=== PATIENT | male | born 1950 | race African-American/Black ===

== ENCOUNTER 2018-12-22 22:15 | Inpatient (IN) | payer MEDICARE, MEDICAID ==
[~2018-12-22] VITALS: Ht 177.8 cm; Wt 69.0 kg
[2018-12-22 23:17] LABS: EOSINOPHILS % 7.1 % (0.0-5.0); HEMATOCRIT. 40.3 % (42.0-52.0); HEMOGLOBIN. 13.8 g/dL (14.0-18.0); LYMPHOCYTES % 27.9 % (20.0-50.0); MEAN CORPUSCULAR HEMOGLOBIN 31.5 pg (28.0-32.0); MEAN CORPUSCULAR VOLUME 91.8 fL (80.0-94.0); MEAN PLATELET VOLUME 7.9 fl (7.4-10.4); MONOCYTES % 10.1 % (2.0-8.0); NEUTROPHILS % 53.9 % (40.0-76.0); PLATELET 177 x1000/uL (130-400); RED BLOOD CELL COUNT 4.39 mill/uL (4.7-6.1); RED CELL DISTRIBUTION WIDTH 14.1 % (11.6-14.6)
[2018-12-22 23:20] LABS: CHLORIDE 112 mEq/L (98-107)
[2018-12-22 23:28] LABS: INR 1.1; PARTIAL THROMBOPLASTIN TIME 36.8 sec (23.4-31.0)
[2018-12-23] MEDS ORDERED: ASPIRIN 325MG EC TABLET PO ONE (01:45)
[2018-12-23 05:00] VITALS: BP 143/72
[2018-12-23 08:00] VITALS: BP_SYST 138; BP_SYST 142; BP_DIAS 78; BP_DIAS 87
[2018-12-23] MEDS ORDERED: TEMA15CA5 MT (08:25)
[2018-12-23] MEDS ORDERED: LIP40 MT (08:25)
[2018-12-23] MEDS ORDERED: TRAM50TA94 MT (08:25)
[2018-12-23] MEDS ORDERED: APIX5TAB MT (08:25)
[2018-12-23] MEDS ORDERED: HYDR-4001 MT (08:25)
[2018-12-23] MEDS ORDERED: SERT25TA MT (08:25)
[2018-12-23] MEDS ORDERED: BACL-141 MT (08:25)
[2018-12-23] MEDS ORDERED: AMLO5TAB4 MT (08:25)
[2018-12-23] MEDS ORDERED: LOPHC2 MT (08:25)
[2018-12-23] MEDS ORDERED: FAMO40TA70 MT (08:25)
[2018-12-23] MEDS ORDERED: LORA1TAB MT (08:25)
[2018-12-23] MEDS ORDERED: CLONIDINE 0.1MG TABLET PO PRN (08:30)
[2018-12-23] MEDS ORDERED: ACETAMINOPHEN 325MG TABLET PO PRN (08:30)
[2018-12-23] MEDS ORDERED: DOCUSATE SODIUM 100MG CAPSULE PO PRN (08:30)
[2018-12-23] MEDS ORDERED: ONDANSETRON HCL 4MG/2ML INJ IV PRN (08:30)
[2018-12-23] MEDS ORDERED: ENOXAPARIN 40MG/0.4ML SYR SUBCUT SCH (09:00)
[2018-12-23] MEDS ORDERED: FAMOTIDINE 20MG TABLET PO SCH (09:45)
[2018-12-23] MEDS ORDERED: AMLODIPINE 5MG TABLET PO SCH (10:00)
[2018-12-23] MEDS ORDERED: APIXABAN 5 MG TABLET PO SCH (10:00)
[2018-12-23] MEDS: SERTRALINE HCL 25MG TABLET PO SCH (10:10)
[2018-12-23] MEDS: METOPROLOL TARTRATE 50MG TABLET PO SCH ×2 (10:10→21:06)
[2018-12-23 12:00] VITALS: BP 138/78
[2018-12-23] MEDS ORDERED: IOHEXOL-350 100 ML BOTTLE ONE (12:46)
[2018-12-23] MEDS: AMLODIPINE 5MG TABLET PO SCH ×2 (13:54→21:05)
[2018-12-23] MEDS: BACLOFEN 10MG TABLET PO SCH ×2 (15:32→21:05)
[2018-12-23] MEDS: SODIUM CHLORIDE 0.45% 1,000 ML IV SCH ×2 (15:32→21:07)
[2018-12-23 16:00] VITALS: BP 114/66
[2018-12-23 16:01] LABS: ETHANOL BLOOD < 10 mg/dL
[2018-12-23 16:06] LABS: CREATINE KINASE 72 IU/L (39-308); T4 FREE 0.92 ng/dL (0.76-1.46)
[2018-12-23 16:12] LABS: FOLIC ACID (FOLATE) SERUM 11.6 ng/mL (>5.38)
[2018-12-23 20:00] VITALS: BP 131/74
[2018-12-23] MEDS ORDERED: TEMAZEPAM 15MG CAPSULE PO PRN (21:00)
[2018-12-24] VITALS: BP 117/62
[2018-12-24 04:00] VITALS: BP 124/78
[2018-12-24] MEDS: SODIUM CHLORIDE 0.45% 1,000 ML IV SCH (06:08)
[2018-12-24] MEDS: BACLOFEN 10MG TABLET PO SCH ×3 (06:48→21:27)
[2018-12-24 07:18] LABS: BASOPHILS % 0.5 % (0.0-2.0); EOSINOPHILS % 8.1 % (0.0-5.0); HEMATOCRIT. 36.1 % (42.0-52.0); HEMOGLOBIN. 12.9 g/dL (14.0-18.0); MEAN CORPUSCULAR HEMOGLOBIN 32.3 pg (28.0-32.0); MEAN CORPUSCULAR VOLUME 90.6 fL (80.0-94.0); MEAN PLATELET VOLUME 8.5 fl (7.4-10.4); NEUTROPHILS % 51.4 % (40.0-76.0); PLATELET 182 x1000/uL (130-400); RED BLOOD CELL COUNT 3.99 mill/uL (4.7-6.1); RED CELL DISTRIBUTION WIDTH 14.2 % (11.6-14.6)
[2018-12-24 07:22] LABS: CHLORIDE 112 mEq/L (98-107)
[2018-12-24 07:34] LABS: LDL CHOLESTEROL 71 mg/dL (5-100)
[2018-12-24 07:35] LABS: HDL CHOLESTEROL 52 mg/dL (40-59)
[2018-12-24 08:00] VITALS: BP 94/79
[2018-12-24] MEDS: AMLODIPINE 5MG TABLET PO SCH ×2 (09:00→21:27)
[2018-12-24] MEDS: METOPROLOL TARTRATE 50MG TABLET PO SCH ×2 (09:00→21:27)
[2018-12-24] MEDS: SERTRALINE HCL 25MG TABLET PO SCH (09:58)
[2018-12-24 12:00] VITALS: BP 117/69
[2018-12-24 16:00] VITALS: BP 130/79
[2018-12-24 20:00] VITALS: BP_SYST 123; BP_SYST 142; BP_DIAS 75; BP_DIAS 79
[2018-12-24 21:13] LABS: CLARITY URINE CLEAR (CLEAR); COLOR URINE YELLOW (YELLOW); KETONES URINE TRACE (NEGATIVE); LEUKOCYTE ESTERASE URINE 2+ (NEGATIVE); NITRITE URINE POSITIVE (NEGATIVE); OCCULT BLOOD URINE 2+ (NEGATIVE); PROTEIN URINE NEGATIVE (NEGATIVE); SPECIFIC GRAVITY URINE 1.024 (1.005-1.030); UROBILINOGEN URINE 0.2 E.U./dL (0.2-1.0)
[2018-12-24 21:26] LABS: *COCAINE SCREEN URINE NEGATIVE (NEGATIVE)
[2018-12-24 21:28] LABS: *AMPHETAMINES SCREEN URINE NEGATIVE (NEGATIVE); *BARBITURATES SCREEN URINE NEGATIVE (NEGATIVE); *BENZODIAZEPINES SCREEN URINE NEGATIVE (NEGATIVE); CANNABINOID URINE SCREEN NEGATIVE (NEGATIVE); METHADONE URINE SCREEN NEGATIVE (NEGATIVE); OPIATES URINE SCREEN NEGATIVE (NEGATIVE); PHENCYCLIDINE URINE SCREEN NEGATIVE (NEGATIVE)
[2018-12-25] VITALS: BP 121/82
[2018-12-25] MEDS: SODIUM CHLORIDE 0.45% 1,000 ML IV SCH ×2 (00:39→17:11)
[2018-12-25 04:00] VITALS: BP 147/82
[2018-12-25] MEDS: BACLOFEN 10MG TABLET PO SCH ×3 (06:03→20:59)
[2018-12-25 06:38] LABS: BASOPHILS % 0.6 % (0.0-2.0); EOSINOPHILS % 8.1 % (0.0-5.0); HEMATOCRIT. 37.4 % (42.0-52.0); HEMOGLOBIN. 12.8 g/dL (14.0-18.0); LYMPHOCYTES % 24.1 % (20.0-50.0); MEAN CORPUSCULAR HEMOGLOBIN 30.9 pg (28.0-32.0); MEAN CORPUSCULAR VOLUME 90.8 fL (80.0-94.0); MEAN PLATELET VOLUME 8.4 fl (7.4-10.4); MONOCYTES % 7.5 % (2.0-8.0); NEUTROPHILS % 59.7 % (40.0-76.0); PLATELET 178 x1000/uL (130-400); RED BLOOD CELL COUNT 4.12 mill/uL (4.7-6.1); RED CELL DISTRIBUTION WIDTH 13.5 % (11.6-14.6)
[2018-12-25 07:24] LABS: CHLORIDE 111 mEq/L (98-107)
[2018-12-25 08:01] VITALS: BP 117/83
[2018-12-25] MEDS ORDERED: LEVOFLOXACIN 250MG PREMIX 50 ML IV SCH (09:15)
[2018-12-25] MEDS: SERTRALINE HCL 25MG TABLET PO SCH (09:49)
[2018-12-25] MEDS: METOPROLOL TARTRATE 50MG TABLET PO SCH ×2 (09:49→20:59)
[2018-12-25] MEDS: AMLODIPINE 5MG TABLET PO SCH ×2 (09:50→20:59)
[2018-12-25] MEDS: LEVOFLOXACIN 500MG PREMIX 100 ML IV SCH (11:42)
[2018-12-25] MEDS: CYANOCOBALAMIN 1000MCG TABLET PO SCH (11:42)
[2018-12-25 12:01] VITALS: BP 123/82
[2018-12-25 16:00] VITALS: BP 155/70
[2018-12-25 20:00] VITALS: BP 130/77
[2018-12-26 04:47] VITALS: BP 126/84
[2018-12-26 06:33] LABS: HEMATOCRIT. 38.1 % (42.0-52.0); HEMOGLOBIN. 13.1 g/dL (14.0-18.0); MEAN CORPUSCULAR HEMOGLOBIN 31.2 pg (28.0-32.0); MEAN CORPUSCULAR VOLUME 90.6 fL (80.0-94.0); MEAN PLATELET VOLUME 8.6 fl (7.4-10.4); PLATELET 174 x1000/uL (130-400); RED CELL DISTRIBUTION WIDTH 13.5 % (11.6-14.6)
[2018-12-26 06:56] LABS: CHLORIDE 110 mEq/L (98-107)
[2018-12-26 08:00] VITALS: BP 122/70
[2018-12-26] MEDS: METOPROLOL TARTRATE 50MG TABLET PO SCH (09:14)
[2018-12-26] MEDS: CYANOCOBALAMIN 1000MCG TABLET PO SCH (09:15)
[2018-12-26] MEDS: AMLODIPINE 5MG TABLET PO SCH (09:15)
[2018-12-26] MEDS: SERTRALINE HCL 25MG TABLET PO SCH (09:45)
[2018-12-26] MEDS ORDERED: POLYETHYLENE GLYCOL 3350 (17GM) 1 DOSE PACK PO SCH (10:15)
[2018-12-26] MEDS: SODIUM CHLORIDE 0.45% 1,000 ML IV SCH (10:42)
[2018-12-26] MEDS: LACTULOSE 20G/30ML UDC PO SCH ×3 (10:48→17:00)
[2018-12-26] MEDS: LEVOFLOXACIN 500MG PREMIX 100 ML IV SCH (11:15)
[2018-12-26 12:00] VITALS: BP 171/76
[2018-12-26 12:10] LABS: PLATELET ESTIMATE NORMAL
[2018-12-26] MEDS: BACLOFEN 10MG TABLET PO SCH (13:45)
[2018-12-26 16:00] VITALS: BP 130/88
[2018-12-26] MEDS ORDERED: DOCUSATE SODIUM 100MG CAPSULE PO SCH (17:00)
[2018-12-26 20:54] VITALS: BP 157/86
[2018-12-27] MEDS ORDERED: LEVOFLOXACIN 250MG TABLET PO SCH (11:00)
== END 2018-12-26 21:45 | DRG 551 ==
LOC: ER 22:15 → 7WST 12-23 02:08 → ENRESERV 12-23 04:31
PROVIDERS: ADMIT Internal Medicine Nephrology; ATTEND Internal Medicine Nephrology
DX: M48.061 Spinal stenosis, lumbar region without neurogenic claudication (principal); G93.41 Metabolic encephalopathy; G82.50 Quadriplegia, unspecified; N39.0 Urinary tract infection, site not specified; R47.01 Aphasia; G90.9 Disorder of the autonomic nervous system, unspecified; E78.5 Hyperlipidemia, unspecified; F03.90 Unspecified dementia, unspecified severity, without behavioral disturbance, psychotic disturbance, mood disturbance, and anxiety; D64.9 Anemia, unspecified; D72.819 Decreased white blood cell count, unspecified; R13.10 Dysphagia, unspecified; R47.1 Dysarthria and anarthria; E78.00 Pure hypercholesterolemia, unspecified; I49.3 Ventricular premature depolarization; F41.8 Other specified anxiety disorders; M47.812 Spondylosis without myelopathy or radiculopathy, cervical region; M75.92 Shoulder lesion, unspecified, left shoulder; M75.91 Shoulder lesion, unspecified, right shoulder; F17.200 Nicotine dependence, unspecified, uncomplicated; J44.9 Chronic obstructive pulmonary disease, unspecified; I11.9 Hypertensive heart disease without heart failure; R29.6 Repeated falls; Z79.01 Long term (current) use of anticoagulants; Z86.711 Personal history of pulmonary embolism; Z87.01 Personal history of pneumonia (recurrent)
CPT/HCPCS: 36415; 70544; 70553; 71045; 71275; 72141; 72148; 78582; 80048; 80061; 80305; 80320; 81003; 82140; 82550; 82607; 82746; 83036; 84439; 84443; 84481; 84484; 93005; 93306; 93880; 97162; 97166; 97530; 99285; A9558; J1956; Q9967; G0480